=== PATIENT | female | born 1955 | race Two or more races ===

== ENCOUNTER 2022-12-15 11:18 | Emergency (ER) | payer OTHER ==
[~2022-12-15] VITALS: Ht 157.5 cm; Wt 55.8 kg
[2022-12-15] MEDS ORDERED: ARIPIPRAZOLE2 MG (12:28)
[2022-12-15] MEDS ORDERED: FAMOTIDINE40 MG (12:28)
[2022-12-15] MEDS ORDERED: HYDROCHLOROTHIA25 MG (12:28)
[2022-12-15] MEDS ORDERED: CLONAZEPAM1 MG (12:28)
[2022-12-15] MEDS ORDERED: MIRTAZAPINE15 MG (12:29)
[2022-12-15] MEDS ORDERED: SERTRALINE HCL50 MG (12:29)
[2022-12-15] MEDS ORDERED: LOSARTAN POTASS25 MG (12:30)
[2022-12-15] MEDS ORDERED: LEVOTHYROXINE75 MCG (12:30)
[2022-12-15] MEDS ORDERED: ISOSORBIDE MONO10 MG (12:30)
[2022-12-15] MEDS ORDERED: CLOPIDOGREL BIS75 MG (12:30)
[2022-12-15] MEDS ORDERED: ADULT LOW DOSE81 M1 (12:31)
[2022-12-15] MEDS ORDERED: DUI500 PO (18:40)
[2022-12-15] MEDS ORDERED: DOLOGESIC 500-1 EACH PO (18:40)
== END 2022-12-15 18:47 | disposition home or self-care (01) ==
LOC: ER 11:18
PROVIDERS: Nurse Practitioner Family
DX: G25.2 Other specified forms of tremor (principal); K21.9 Gastro-esophageal reflux disease without esophagitis; E03.9 Hypothyroidism, unspecified; I10 Essential (primary) hypertension; Z86.73 Personal history of transient ischemic attack (TIA), and cerebral infarction without residual deficits; Z91.041 Radiographic dye allergy status; N39.0 Urinary tract infection, site not specified; M94.0 Chondrocostal junction syndrome [Tietze]; F41.9 Anxiety disorder, unspecified; Z20.822 Contact with and (suspected) exposure to COVID-19
CPT/HCPCS: 36415; 70450; 71045; 93005; 96365; 99284; J3490